=== PATIENT | male | born 1945 | race Caucasian/White ===

== ENCOUNTER 2018-10-09 20:39 | Emergency (ER) | payer MEDICARE, OTHER ==
[2018-10-09 23:01] LABS: ADD UMIC YES; UR ASCORBIC ACID NEGATIVE (NEGATIVE); UR BILIRUBIN (Dip) NEGATIVE (NEGATIVE); UR BLOOD (Dip) 2+ mg/dL (NEGATIVE); UR CLARITY CLEAR (CLEAR); UR COLOR YELLOW (YELLOW); UR GLUCOSE (Dip) NEGATIVE (NEGATIVE); UR KETONES (Dip) NEGATIVE (NEGATIVE); UR LEUKOCYTE ESTERASE (Dip) NEGATIVE Leu/ul (NEGATIVE); UR NITRITE (Dip) NEGATIVE (NEGATIVE); UR RBC 8 /HPF (0-5); UR SPECIFIC GRAVITY (Dip) 1.013 (1.003-1.030); UR TOTAL PROTEIN (Dip) NEGATIVE (NEGATIVE); UR UROBILINOGEN (Dip) NEGATIVE (NEGATIVE); UR WBC 0 /HPF (0-5)
== END 2018-10-09 23:37 | disposition home or self-care (01) ==
LOC: FTE 20:39
DX: R33.9 Retention of urine, unspecified (principal)
CPT/HCPCS: 51702; 81001; 99283-25

== ENCOUNTER 2018-10-10 18:54 | Emergency (ER) | payer MEDICARE, OTHER | END 2018-10-10 21:22 | disposition left against medical advice (07) | LOC: FTE 18:54 | DX: R33.9 Retention of urine, unspecified (principal) | CPT/HCPCS: 51702; 99283-25 ==